=== PATIENT | male | born 1995 | race Caucasian/White ===

== ENCOUNTER 2019-04-09 12:25 | Emergency (ER) | payer OTHER ==
[2019-04-09 12:35] VITALS: BP 140/87
[2019-04-09] MEDS ORDERED: TRANEXAMIC ACID 1,000 MG/10 ML VIAL NAS STA (13:10)
--- NOTE | 2019-04-09 13:39 | ED Physician Documentation ---
PD HPI SKIN - Stated complaint Stated Complaint: LT FINGER LAC - Chief complaint Chief Complaint: Laceration - History obtained from History obtained from: Patient - History of Present Illness Timing - onset: Yesterday Timing - duration: Days (1) Timing - details: Abrupt onset Pain level max: 5 Pain level now: 3 Location: RUE (right second finger tip/nail) Quality / character: Painful Improved by: Other (ibuprofen) Worsened by (comment): COMMENT (touching the area) Associated symptoms: No: Fever, Joint pain Similar symptoms before: Has not had sx before Recently seen: Not recently seen Review of Systems Ten Systems: 10 systems reviewed and negative Constitutional: denies: Fever Skin: reports: Laceration (s) Musculoskeletal: reports: Extremity pain. denies: Joint pain, Joint swelling Neurologic: denies: Focal weakness, Numbness PD PAST MEDICAL HISTORY - Past Medical History Past Medical History: Yes Respiratory: Asthma Psych: ADD/ADHD, Obsessive compulsive disorder - Past Surgical History Past Surgical History: No - Present Medications Home Medications: Ambulatory Orders Medication Instructions Recorded Confirmed No Known Home Medications 03/30/16 06/03/16 - Allergies Allergies/Adverse Reactions: Allergies Allergy/AdvReac Type Severity Reaction Status Date / Time Penicillins Allergy unknown Verified 06/03/16 15:00 - Social History Does the pt smoke?: No Smoking Status: Never smoker Does the pt drink ETOH?: No Does the pt have substance abuse?: Yes - Immunizations Immunizations are current?: Yes - POLST Patient has POLST: No PD ED PE NORMAL - Vitals Vital signs reviewed: Yes - General General: Alert and oriented X 3 - HEENT HEENT: Atraumatic - Neck Neck: Supple, no meningeal sign - Cardiac Cardiac: RRR - Respiratory Respiratory: No respiratory distress - Abdomen Abdomen: Soft, Non distended - Male Male : Deferred - Rectal Rectal: Deferred - Derm Derm: Other (nailbed laceration about 2cm of R 2nd finger, bleeding ) - Extremities Extremities: Normal ROM s pain, No edema, Other (R 2nd finger laceration of small area of skin and nailbed) Results - Vitals Vitals: Vital Signs - 24 hr 04/09/19 12:32 Temperature 36.6 C Heart Rate 77 Respiratory 16 Rate Blood Pressure 140/87 H O2 Saturation 98 Oxygen O2 Source Room air PD MEDICAL DECISION MAKING - ED course Complexity details: re-evaluated patient, considered differential, d/w patient ED course: fingertip laceration, nailbed laceration, finger fracture 23 y/o F with bleeding nailbed from a superficial laceration that occurred 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 He sliced off part of his nailbed of the R 2nd digit and it has been bleeding ever since. Controlled iwth pressure but then rebleeds. Placed in 100ml of topical TXA with improvement and then wrapped in gelfoam and gauze. Bleeding now controlled. No repairable injury thus pt to f/u with PCP for recheck of his wound. Departure - Departure Disposition: Home, Self Care Clinical Impression: Nailbed laceration, finger, Laceration Condition: Stable Instructions: ED Laceration Small Superf No Sutr Follow-Up: your, doctor [Other] - As Needed Comments: You have a laceration of the nailbed of your finger. It will heal on its own. Keep it covered and follow up with your doctor to recheck the wound in a week. Return to the ED if signs of infection develop like redness, swelling, discharge or increased pain or fever. Forms: Activity restrictions Discharge Date/Time: 04/09/19 14:11
[2019-04-09] MEDS ORDERED: IBUPROFEN 600 MG TABLET PO STA (13:40)
== END 2019-04-09 14:11 | disposition home or self-care (01) ==
LOC: ED 12:25
DX: S61.310A Laceration without foreign body of right index finger with damage to nail, initial encounter (principal); W31.82XA Contact with other commercial machinery, initial encounter; Y93.G1 Activity, food preparation and clean up; Y92.89 Other specified places as the place of occurrence of the external cause; Y99.0 Civilian activity done for income or pay
CPT/HCPCS: 1040M; 99282; 99283; A9270

== ENCOUNTER 2020-01-07 07:30 | Emergency (ER) | payer SELFPAY ==
[2020-01-07 08:08] LABS: RAPID STREP SCREEN Negative (Negative)
[2020-01-07] MEDS ORDERED: CHERRY SYRUP 10 ML UDC PO ONE (09:03)
[2020-01-07] MEDS ORDERED: DEXAMETHASONE 10 MG/ML VIAL PO STA (09:03)
--- NOTE | 2020-01-07 09:07 | ED Physician Documentation ---
PD HPI HEENT - Stated complaint Stated Complaint: SORE THROAT - Chief complaint Chief Complaint: Heent - History obtained from History obtained from: Patient - History of Present Illness Timing - onset: How many days ago (2) Timing - duration: Days (2) Timing - details: Gradual onset, Still present Location: Throat Improves: Medication Worsens: Swalllowing Associated symptoms: Fever, Congestion, Swollen nodes Similar symptoms before: Has not had sx before Recently seen: Not recently seen - Additional information Additional information: 24-year-old male has developed a sore throat beginning yesterday he took some ibuprofen yesterday it seemed to help a little bit went to sleep and this morning woke up with severe pain.He feels like he is swallowing razor blades. He is not had this happen to him previously. Review of Systems Constitutional: reports: Fever, Chills, Myalgias, Fatigue Eyes: denies: Decreased vision Ears: denies: Ear pain Nose: reports: Congestion Throat: reports: Sore throat Cardiac: denies: Chest pain / pressure, Palpitations Respiratory: denies: Dyspnea, Cough GI: denies: Nausea, Vomiting : denies: Dysuria PD PAST MEDICAL HISTORY - Past Medical History Respiratory: Asthma Psych: ADD/ADHD, Obsessive compulsive disorder - Past Surgical History Past Surgical History: No - Present Medications Home Medications: Ambulatory Orders Medication Instructions Recorded Confirmed No Known Home Medications 03/30/16 06/03/16 - Allergies Allergies/Adverse Reactions: Allergies Allergy/AdvReac Type Severity Reaction Status Date / Time Penicillins Allergy unknown Verified 06/03/16 15:00 - Social History Does the pt smoke?: No Smoking Status: Never smoker Does the pt drink ETOH?: No Does the pt have substance abuse?: Yes - Immunizations Immunizations are current?: Yes - POLST Patient has POLST: No PD ED PE NORMAL - Vitals Vital signs reviewed: Yes (Tachycardic and hypertensive) - General General: Alert and oriented X 3, No acute distress, Well developed/nourished - HEENT HEENT: Atraumatic, PERRL, EOMI, Ears normal, Other (There is swelling and erythema to the posterior pharynx the tissue is rugated and without exudate. 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, No motor deficit, No sensory deficit, Normal speech Eye Opening: Spontaneous Motor: Obeys Commands Verbal: Oriented GCS Score: 15 - Psych Psych: Normal mood, Normal affect Results - Vitals Vitals: Vital Signs - 24 hr 01/07/20 07:53 Temperature 37.1 C Heart Rate 114 H Respiratory 20 Rate Blood Pressure 136/81 H O2 Saturation 98 Oxygen O2 Source Room air - Labs Labs: Laboratory Tests 01/07/20 07:05 Group A Strep Rapid Negative PD MEDICAL DECISION MAKING - ED course Complexity details: considered differential, d/w patient ED course: 24-year-old male with a severe sore throat has no cough no evidence of otitis and there is no exudate to the swelling in the posterior pharynx. His rapid strep is negative. He is diagnosed with viral pharyngitis and given a dose of dexamethasone 10 mg orally. I discussed with the patient reasons to return to the emergency department and the potential for alternative strep organisms being cultured in his pharynx and we do have a good phone number for the patient. We will excuse him from work for 3 days. Departure - Departure Disposition: 01 Home, Self Care Clinical Impression: Viral pharyngitis Condition: Stable Instructions: ED Pharyngitis Viral Report Pending Follow-Up: [facility] [Provider Group] Forms: Activity restrictions
[2020-01-07 09:37] VITALS: BP 110/76
== END 2020-01-07 09:30 | disposition home or self-care (01) ==
LOC: ED 07:30
DX: J02.8 Acute pharyngitis due to other specified organisms (principal); B97.89 Other viral agents as the cause of diseases classified elsewhere; R00.0 Tachycardia, unspecified; Z88.0 Allergy status to penicillin
CPT/HCPCS: 87070; 87430; 99283; 99284; A9270

== ENCOUNTER 2020-09-24 00:27 | Outpatient (CLI) | payer MEDICAID | END 2020-09-24 00:28 | disposition EMS.NT | LOC: EMS 00:27 | PROVIDERS: ATTEND Surgery | DX: M54.5 Low back pain (principal) ==

== ENCOUNTER 2021-07-28 15:03 | Outpatient (CLI) | payer MEDICAID, OTHER ==
--- NOTE | 2021-07-28 15:44 | XRAY Report ---
PROCEDURE: Hand 2 View LT INDICATIONS: PUNCTURE WOUND TO 2ND AND 3RD DIGITS TECHNIQUE: 2 views of the hand(s) acquired. COMPARISON: Left hand radiographs 06/03/2016. FINDINGS: Bones: No fractures or dislocations. No suspicious bony lesions. Soft tissues: No suspicious soft tissue calcifications. No radiopaque foreign body. IMPRESSION: No acute osseous abnormality. Reviewed by: Stepan España MD on 07/28/2021 3:43 PM PDT Approved by: Stepan España MD on 07/28/2021 3:43 PM PDT Station ID: [id number]
== END 2021-07-28 23:59 | disposition home or self-care (01) ==
LOC: DI.N 15:03
PROVIDERS: ATTEND Family Medicine
DX: S61.233A Puncture wound without foreign body of left middle finger without damage to nail, initial encounter (principal)

== ENCOUNTER 2021-12-17 07:38 | Emergency (ER) | payer MEDICAID, OTHER ==
[2021-12-17] MEDS ORDERED: KETOROLAC 60 MG/2 ML VIAL IM STA (09:00)
[2021-12-17] MEDS ORDERED: CYCLOBENZAPRINE 10 MG TABLET PO STA (09:00)
--- NOTE | 2021-12-17 09:03 | ED Physician Documentation ---
History of Present Illness - Stated complaint Stated Complaint: BACK PX - Chief complaint Chief Complaint: Back Pain - History obtained from History obtained from: Patient - Additonal information Additional information: The patient comes to the emergency department chief complaint of a flareup of his chronic low back pain. 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 He denies any direct trauma to the area. 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 He states that the pain is mostly in his left lumbar area, and denies spinal pain. He is right side dominant. No difficulty controlling bowels or bladder. No numbness, tingling, or weakness in his lower extremities. No other complaints at this time. Review of Systems Ten Systems: 10 systems reviewed and negative Constitutional: reports: Reviewed and negative Eyes: reports: Reviewed and negative Ears: reports: Reviewed and negative Nose: reports: Reviewed and negative Throat: reports: Reviewed and negative Cardiac: reports: Reviewed and negative Respiratory: reports: Reviewed and negative GI: reports: Reviewed and negative : reports: Reviewed and negative Skin: reports: Reviewed and negative Musculoskeletal: reports: Back pain Neurologic: reports: Reviewed and negative Psychiatric: reports: Reviewed and negative Endocrine: reports: Reviewed and negative Immunocompromised: reports: Reviewed and negative PD PAST MEDICAL HISTORY - Past Medical History Past Medical History: Yes Cardiovascular: None Respiratory: Asthma Neuro: None Endocrine/Autoimmune: None GI: None : None HEENT: None Psych: ADD/ADHD, Obsessive compulsive disorder Musculoskeletal: Chronic back pain Derm: None - Past Surgical History Past Surgical History: No - Present Medications Home Medications: Ambulatory Orders Medication Instructions Recorded Confirmed Cyclobenzaprine [Flexeril] 10 mg PO TID PRN #20 tablet 12/17/21 Ibuprofen [Motrin] 800 mg PO Q8H PRN #30 tablet 12/17/21 - Allergies Allergies/Adverse Reactions: Allergies Allergy/AdvReac Type Severity Reaction Status Date / Time Penicillins Allergy unknown Verified 12/17/21 08:00 - Social History Does the pt smoke?: No Smoking Status: Never smoker Does the pt drink ETOH?: No Does the pt have substance abuse?: Yes - Immunizations Immunizations are current?: Yes - POLST Patient has POLST: No PD ED PE NORMAL - Vitals Vital signs reviewed: Yes - General General: Alert and oriented X 3, No acute distress, Well developed/nourished - HEENT HEENT: Atraumatic, PERRL, EOMI, Moist mucous membranes - Cardiac Cardiac: RRR, No murmur - Respiratory Respiratory: No respiratory distress, Clear bilaterally - Abdomen Abdomen: Soft, Non tender, Non distended - Back Back: No CVA TTP, No spinal TTP, Other (Tenderness left lumbar paraspinal musculature. No sciatic tenderness) - Derm Derm: Normal color, Warm and dry, No rash - Extremities Extremities: No deformity, No edema - Neuro Neuro: Alert and oriented X 3, office assistant receptionist 2-12 intact, Normal speech, Other (Grossly intact) - Psych Psych: Normal mood, Normal affect Results - Vitals Vitals: Vital Signs - 24 hr 12/17/21 12/17/21 07:55 09:19 Temperature 36.3 C L Heart Rate 79 63 Respiratory 16 14 Rate Blood Pressure 122/84 H 128/85 H O2 Saturation 99 100 Oxygen O2 Source Room air PD MEDICAL DECISION MAKING - ED course Complexity details: considered differential, d/w patient ED course: The patient was treated symptomatically in the emergency department with Toradol and Flexeril. The patient had not had a distinct injury and had no neurologic symptoms, and as such, I did not feel that imaging was indicated emergently. The patient has been prescribed ibuprofen and Flexeril for at home. We discussed the need for follow-up and the usual indications for return. Departure - Departure Disposition: 01 Home, Self Care Clinical Impression: Spasm of muscle of lower back Condition: Stable Instructions: ED Spasm Back No Trauma Prescriptions: Cyclobenzaprine [Flexeril] 10 mg PO TID PRN #20 tablet PRN Reason: Spasms Ibuprofen [Motrin] 800 mg PO Q8H PRN #30 tablet PRN Reason: PAIN &/OR FEVER Discharge Date/Time: 12/17/21 09:19
[2021-12-17 09:20] VITALS: BP 128/85
== END 2021-12-17 09:19 | disposition home or self-care (01) ==
LOC: ED 07:38
DX: M62.830 Muscle spasm of back (principal)
CPT/HCPCS: 96372; 99283; 99284; A9270